=== PATIENT | female | born 1970 | race African-American/Black ===

== ENCOUNTER 2017-11-08 15:21 | Inpatient (IN) | payer OTHER ==
[2017-11-08 17:03] VITALS: BMI 43.5
--- NOTE | 2017-11-08 20:21 | HP ---
CIWA Score - CIWA Score Nausea/Vomitin Muscle Tremors: None Anxiety: 4-Mod. Anxious/Guarded Agitation: 4-Moderately Restless Paroxysmal Sweats: 3 Orientation: 3-Disoriented Date>2 days Tacttile Disturbances: 3-Moderate Itch/Numb/Burn Auditory Disturbances: 0-None Visual Disturbances: 0-None Headache: 0-None Present CIWA-Ar Total Score: 20 Admission ROS BHS - HPI Chief Complaint: C/O WITHDRAWAL SX'S. SEEKING DETOX FOR ALCOHOLISM Allergies/Adverse Reactions: Allergies Allergy/AdvReac Type Severity Reaction Status Date / Time Sulfa (Sulfonamide Allergy Severe Rash Verified 11/08/17 18:48 Antibiotics) History of Present Illness: 47 Y.O. FEMALE WITH HX/O ALCOHOLISM HERE FOR DETOX/ CLIENT IS KNOWN TO THIS PROGRAM. REFERRED BY HER HOUSING AGENCY. 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 DENIES LEGALS. Exam Limitations: No Limitations - Ebola screening Have you traveled outside of the country in the last 21 days: No Have you had contact with anyone from an Ebola affected area: No Have you been sick,other than usual withdrawal symptoms: No Do you have a fever: No - Review of Systems Constitutional: Chills, Loss of Appetite, Malaise, Night Sweats EENT: reports: Dental Problems (MISSING TEETH) Respiratory: reports: No Symptoms reported Cardiac: reports: No Symptoms Reported GI: reports: Poor Appetite, Poor Fluid Intake, Abdominal cramping : reports: No Symptoms Reported Musculoskeletal: reports: Joint Pain Integumentary: reports: No Symptoms Reported Neuro: reports: No Symptoms reported Endocrine: reports: No Symptoms Reported Hematology: reports: No Symptoms Reported Psychiatric: reports: Depressed Other Systems: Reviewed and Negative Patient History - Patient Medical History Hx Anemia: Yes Hx Asthma: Yes Hx Chronic Obstructive Pulmonary Disease (COPD): No Hx Cancer: No Hx Cardiac Disorders: No Hx Congestive Heart Failure: No Hx Hypertension: Yes Hx Hypercholesterolemia: No Hx Pacemaker: No HX Cerebrovascular Accident: No Hx Seizures: No Hx Dementia: No Hx Diabetes: No Hx Gastrointestinal Disorders: No Hx Liver Disease: No Hx Genitourinary Disorders: No Hx Sexually Transmitted Disorders: Yes (HIV) Hx Renal Disease (ESRD): No Hx Thyroid Disease: No Hx Human Immunodeficiency Virus (HIV): Yes (DX 1989) Hx Hepatitis C: No Hx Depression: Yes Hx Suicide Attempt: No Hx Bipolar Disorder: Yes Hx Schizophrenia: No Other Medical History: DENIES - Patient Surgical History Past Surgical History: Yes Hx Neurologic Surgery: No Hx Cataract Extraction: No Hx Cardiac Surgery: No Hx Lung Surgery: No Hx Breast Surgery: No Hx Breast Biopsy: No Hx Abdominal Surgery: No Hx Appendectomy: No Hx Cholecystectomy: No Hx Genitourinary Surgery: No Hx Section: No Hx Orthopedic Surgery: Yes (BILATERAL HIP REPLACEMENT) Other Surgical History: left hip replacement in 2002 Anesthesia Reaction: No - PPD History Previous Implant?: Yes Documented Results: Positive w/o proof Implanted On Prior [facility] Admission?: No Results: HAS COPY OF CXR PPD to be Administered?: No - Reproductive History Patient is a Female of Child Bearing Age (11 -55 yrs old): Yes Last Menstrual Period: 10/04/17 LMP comment: REG Patient : No (NEG [facility] [place]) - Smoking Cessation Smoking history: Current every day smoker Have you smoked in the past 12 months: Yes Aproximately how many cigarettes per day: 2 Cigars Per Day: 0 Hx Chewing Tobacco Use: No Initiated information on smoking cessation: Yes 'Breaking Loose' booklet given: 11/08/17 - Substance & Tx. History Hx Alcohol Use: Yes Hx Substance Use: Yes Substance Use Type: Alcohol, Cocaine, Marijuana Hx Substance Use Treatment: Yes ([facility]) - Substances Abused Alcohol Route: Oral Frequency: Daily Amount used: LIQUOR- 2 PINTS, BEER- 1 SIX PACK Age of first use: 17 Date of Last Use: 11/08/17 THC Route: Smoking Frequency: Daily Amount used: CAREY BAG Age of first use: 47 Date of Last Use: 11/08/17 COCAINE Route: Smoking Frequency: 3-6 times per week Amount used: 150 DOLLARS Age of first use: 34 Date of Last Use: 11/06/17 Family Disease History - Family Disease History Family Disease History: Diabetes: Grandparent, Heart Disease: Father (/ ALCOHOLISM/COCAINE), Mother, CA: Grandparent Admission Physical Exam S - Vital Signs Vital Signs: Vital Signs - 24 hr 11/08/17 17:01 Temperature 97.8 F Pulse Rate 94 H Respiratory 20 Rate Blood Pressure 168/98 - Physical General Appearance: Yes: Appropriately Dressed, Mild Distress, Sweating, Anxious , Other (DROWSI) HEENTM: Yes: EOMI, Normocephalic, Normal Voice, MYRNA, Pharynx Normal, Other ( MISSING TEETH) Respiratory: Yes: Chest Non-Tender, Lungs Clear, Normal Breath Sounds, No Respiratory Distress, No Accessory Muscle Use Neck: Yes: No masses,lesions,Nodules, Supple Breast: Yes: Breast Exam Deferred Cardiology: Yes: Regular Rhythm, S1, S2, Tachycardia Abdominal: Yes: Normal Bowel Sounds, Soft, Protuberent Genitourinary: Yes: Within Normal Limits (NO C/O) Back: Yes: Normal Inspection Musculoskeletal: Yes: full range of Motion, Gait Steady Extremities: Yes: Normal Capillary Refill, Normal Range of Motion, Non-Tender Neurological: Yes: Alert, Motor Strength 5/5 Integumentary: Yes: Normal Color, Warm, Moist Lymphatic: Yes: Within Normal Limits - Diagnostic (1) Alcohol dependence with uncomplicated withdrawal Current Visit: Yes Status: Chronic (2) Nicotine dependence Current Visit: Yes Status: Chronic Qualifiers: Nicotine product type: cigarettes Substance use status: uncomplicated Qualified Code(s): F17.210 - Nicotine dependence, cigarettes, uncomplicated (3) Asthma Current Visit: Yes Status: Chronic (4) Cocaine dependence Current Visit: Yes Status: Chronic (5) Essential hypertension Current Visit: Yes Status: Chronic (6) Human immunodeficiency virus infection Current Visit: Yes Status: Chronic (7) Anemia Current Visit: Yes Status: Chronic Qualifiers: Anemia type: unspecified type Qualified Code(s): D64.9 - Anemia, unspecified (8) Positive PPD Current Visit: Yes Status: Acute Cleared for Admission [facility] - Detox or Rehab [facility] Level of Care: Medically Managed Detox Regimen/Protocol: Librium Claeared for Rehab Admission: No [facility] Breath Alcohol Content Breath Alcohol Content: 0 Urine Pregancy Test - Result Urine Test Results: Negative- NO Line Present Urine Drug Screen - Results Drug Screen Negative: No Urine Drug Screen Results: THC-Marijuana, CHEVY-Cocaine
[2017-11-08] MEDS ORDERED: P-EPHED 60MG/TRIPROLIDI 2.5MG TABLET PO PRN (20:31)
[2017-11-08] MEDS ORDERED: MENTHOL/PHENOL 1 EACH UD MM PRN (20:31)
[2017-11-08] MEDS ORDERED: NICOTINE POLACRILEX 2 MG GUM BC PRN (20:31)
[2017-11-08] MEDS ORDERED: MAGNESIUM HYDROX 2400MG/30ML ORAL SUSPENSION 30 ML CUP PO PRN (20:31)
[2017-11-08] MEDS ORDERED: MAGNESIUM CITRATE 300 ML BOTTLE PO PRN (20:31)
[2017-11-08] MEDS ORDERED: IBUPROFEN 400 MG TABLET (FP) PO PRN (20:31)
[2017-11-08] MEDS ORDERED: hydrOXYzine PAMOATE 50 MG CAPSULE (FP) PO PRN (20:31)
[2017-11-08] MEDS ORDERED: LOPERAMIDE HCL 2 MG CAPSULE PO PRN (20:31)
[2017-11-08] MEDS ORDERED: guaiFENesin/D-METHORPHAN HB 10 ML UNIT-DOSE CUPS PO PRN (20:31)
[2017-11-08] MEDS ORDERED: MAG HYDROX/AL HYDROX/SIMETH 30 ML UNIT-DOSE CUP PO PRN (20:31)
[2017-11-08] MEDS ORDERED: ACETAMINOPHEN 325 MG TABLET (FP) PO PRN (20:31)
[2017-11-08] MEDS ORDERED: chlordiazePOXIDE HCL 25 MG CAPSULE PO PRN (20:31)
[2017-11-08] MEDS ORDERED: ALBUTEROL SO4 18 GM HFA INHALER IH PRN (20:34)
[2017-11-08] MEDS ORDERED: DOCUSATE SODIUM 100 MG CAPSULE (FP) PO PRN (20:38)
[2017-11-08] MEDS: RALTEGRAVIR POTASSIUM 400 MG TAB PO SCH (21:32)
[2017-11-08] MEDS: LISINOPRIL 10 MG TABLET (FP) PO SCH (21:32)
[2017-11-08] MEDS: THIAMINE HCL 100 MG TABLET (FP) PO SCH (21:33)
[2017-11-08] MEDS ORDERED: DARUNAVIR ETHANOLATE PO SCH (22:00)
[2017-11-08] MEDS ORDERED: MELATONIN 5 MG TABLETS PO PRN (22:00)
[2017-11-08] MEDS: chlordiazePOXIDE HCL 25 MG CAPSULE PO SCH (22:00)
[2017-11-08 22:55] LABS: URINE APPEARANCE SLCLOUDY; URINE BILIRUBIN NEGATIVE (<2.0 mg/dL); URINE BLOOD NEGATIVE (NEGATIVE); URINE COLOR LTYELLOW; URINE GLUCOSE (UA) NEGATIVE (NEGATIVE); URINE KETONE NEGATIVE (NEGATIVE); URINE LEUK ESTERASE NEGATIVE (NEGATIVE); URINE NITRITE NEGATIVE (NEGATIVE); URINE PROTEIN NEGATIVE (NEGATIVE); URINE UROBILINOGEN NEGATIVE mg/dL (0.2-1.0)
[2017-11-09] MEDS: ETRAVIRINE 100 MG TABLET PO SCH ×2 (00:12→11:10)
[2017-11-09] MEDS: RITONAVIR 100 MG TABLET PO SCH ×5 (00:14→22:28)
[2017-11-09] MEDS: RALTEGRAVIR POTASSIUM 400 MG TAB PO SCH ×2 (00:22→10:35)
[2017-11-09] MEDS: chlordiazePOXIDE HCL 25 MG CAPSULE PO SCH ×4 (05:45→22:28)
--- NOTE | 2017-11-09 07:45 | CONSULT ---
[facility] Psychiatric Consult - Data Date of interview: 11/09/17 Admission source: [facility] Identifying data: This is 47 years old AA obese female, single mother of two, living alone, on PA, with no psychiatric hospitalization history, seeking for detoxification after abusing: Alcohol, Cocaine and Nicotine. Substance Abuse History: Smoking Cessation. Smoking history: Current every day smoker. Have you smoked in the past 12 months: Yes. Aproximately how many cigarettes per day: 2. Cigars Per Day: 0. Hx Chewing Tobacco Use: No. Initiated information on smoking cessation: Yes. 'Breaking Loose' booklet given : 11/08/17. - Substance & Tx. History. Hx Alcohol Use: Yes. Hx Substance Use : Yes. Substance Use Type: Alcohol, Cocaine, Marijuana. Hx Substance Use Treatment: Yes ([facility]). - Substances Abused. Alcohol. Route: Oral. Frequency: Daily. Amount used: LIQUOR- 2 PINTS, BEER- 1 SIX PACK. Age of first use: 17. Date of Last Use: 11/08/17. THC. Route: Smoking. Frequency : Daily. Amount used: CAREY BAG. Age of first use: 47. Date of Last Use: 06/17. COCAINE. Route: Smoking. Frequency: 3-6 times per week. Amount used: 150 DOLLARS. Age of first use: 34. Date of Last Use: 11/06/17 Medical History: Obesity, Asthma, HTN, HIV+, Anemia, PPD positive history. Psychiatric History: Patient denies past psychiatric history Physical/Sexual Abuse/Trauma History: Denies Additional Comment: Obnservation. Detox Unit Care Protocol Mental Status Exam - Mental Status Exam Alert and Oriented to: Person Cognitive Function: Fair Patient Appearance: Unkempt Mood: Sad Affect: Mood Congruent Patient Behavior: Sedated Speech Pattern: Delayed Voice Loudness: Mildly Soft/Quiet Thought Process: Goal Oriented Thought Disorder: Being Controlled Hallucinations: Denies Suicidal Ideation: Denies Homicidal Ideation: Denies Sleep: Difficulty falling asleep Appetite: Weight gain Muscle strength/Tone: Normal Gait/Station: Shuffling Additional Comments: Obnservation. Detox Unit Care Protocol Psychiatric Findings - Problem List ([place] 1, 2,3) (1) Drug-induced mood disorder Current Visit: Yes Status: Suspected (2) Alcohol dependence with uncomplicated withdrawal Current Visit: Yes Status: Chronic (3) Cocaine dependence Current Visit: Yes Status: Chronic (4) Nicotine dependence Current Visit: Yes Status: Chronic Qualifiers: Nicotine product type: cigarettes Substance use status: uncomplicated Qualified Code(s): F17.210 - Nicotine dependence, cigarettes, uncomplicated (5) Alcohol dependence Current Visit: No Status: Active - Initial Treatment Plan Initial Treatment Plan: Obnservation. Detox Unit Care Protocol
[2017-11-09] MEDS ORDERED: ETRAVIRINE 200 MG TABLET PO SCH (09:15)
[2017-11-09] MEDS ORDERED: PREVASTATIN PO SCH (10:15)
[2017-11-09 10:35] LABS: HEMOGLOBIN 11.5 GM/dL (10.7-15.3); PLATELET COUNT 212 K/MM3 (134-434); WHITE BLOOD COUNT 9.7 K/mm3 (4.0-10.0)
[2017-11-09] MEDS: LISINOPRIL 10 MG TABLET (FP) PO SCH (10:35)
[2017-11-09] MEDS: PRENATAL VITAMINS W/ FOLIC ACID TABLET (FP) PO SCH (10:35)
[2017-11-09] MEDS: AMLODIPINE BESYLATE 10 MG PO SCH (10:36)
[2017-11-09] MEDS: DARUNAVIR ETHANOLATE 600 MG PO SCH ×3 (10:36→22:29)
[2017-11-09] MEDS: NICOTINE 14 MG/24 HOURS TOPICAL PATCH TD SCH (10:36)
[2017-11-09 10:40] LABS: MCH 30.5 pg (25.7-33.7); MCHC 32.9 g/dl (32.0-36.0); MEAN CELL VOLUME 92.8 fl (80-96); MEAN PLT VOLUME 9.7 fl (7.5-11.1); RBC 3.78 M/mm3 (3.60-5.2); RDW 15.1 % (11.6-15.6)
[2017-11-09 10:53] LABS: ALBUMIN 3.3 g/dl (3.4-5.0); ANION GAP 6 (8-16); BLOOD UREA NITROGEN 24 mg/dL (7-18); CHLORIDE 109 mmol/L (98-107); CO2 26 mmol/L (21-32); GLUCOSE,RANDOM 120 mg/dL (74-106); POTASSIUM 3.4 mmol/L (3.5-5.1); SODIUM 141 mmol/L (136-145)
[2017-11-09 11:01] LABS: ALK PHOS 159 U/L (45-117); CREATININE 1.4 mg/dL (0.55-1.02); SGOT/AST 15 U/L (15-37); SGPT/ALT 21 U/L (12-78); TOT PROT 7.4 g/dl (6.4-8.2)
[2017-11-09 11:08] LABS: BILIRUBIN,TOTAL < 0.1 mg/dL (0.2-1.0)
[2017-11-09] MEDS: FUROSEMIDE 40 MG TABLET (FP) PO SCH (11:26)
--- NOTE | 2017-11-09 12:30 | PN ---
S CIWA - CIWA Score Nausea/Vomitin Muscle Tremors: 3 Anxiety: 3 Agitation: 2 Paroxysmal Sweats: 1-Minimal Palms Moist Orientation: 0-Oriented Tacttile Disturbances: 1-Very Mild Itch/Numbness Auditory Disturbances: 1-Very Mild Visual Disturbances: 0-None Headache: 2-Mild CIWA-Ar Total Score: 16 BHS Progress Note (SOAP) Subjective: ALERT,IRRITABLE,ANXIOUS,INTERRUPTED SLEEP,TREMOR,EDEMA BOTH LEGS,NO SOB,HISTORY OF CHF IN THE PAST Objective: 11/09/17 12:25 Vital Signs Temperature 98.2 F 11/09/17 10:16 Pulse Rate 104 H 11/09/17 10:16 Respiratory Rate 20 11/09/17 10:16 Blood Pressure 136/92 11/09/17 10:16 O2 Sat by Pulse Oximetry (%) 11/09/17 12:25 EKG NSR,NORMAL ECG Laboratory Last Values WBC 9.7 K/mm3 (4.0-10.0) 11/09/17 07:00 RBC 3.78 M/mm3 (3.60-5.2) 11/09/17 07:00 Hgb 11.5 GM/dL (10.7-15.3) D 11/09/17 07:00 Hct 35.0 % (32.4-45.2) D 11/09/17 07:00 MCV 92.8 fl (80-96) 11/09/17 07:00 MCH 30.5 pg (25.7-33.7) D 11/09/17 07:00 MCHC 32.9 g/dl (32.0-36.0) 11/09/17 07:00 RDW 15.1 % (11.6-15.6) D 11/09/17 07:00 Plt Count 212 K/MM3 (134-434) 11/09/17 07:00 MPV 9.7 fl (7.5-11.1) 11/09/17 07:00 Sodium 141 mmol/L (136-145) 11/09/17 07:00 Potassium 3.4 mmol/L (3.5-5.1) L 11/09/17 07:00 Chloride 109 mmol/L (98-107) H 11/09/17 07:00 Carbon Dioxide 26 mmol/L (21-32) 11/09/17 07:00 Anion Gap 6 (8-16) L 11/09/17 07:00 BUN 24 mg/dL (7-18) H 11/09/17 07:00 Creatinine 1.4 mg/dL (0.55-1.02) H 11/09/17 07:00 Creat Clearance w eGFR 40.13 (>60) 11/09/17 07:00 Random Glucose 120 mg/dL (74-106) H 11/09/17 07:00 Calcium 9.0 mg/dL (8.5-10.1) 11/09/17 07:00 Total Bilirubin < 0.1 mg/dL (0.2-1.0) L D 11/09/17 07:00 AST 15 U/L (15-37) 11/09/17 07:00 ALT 21 U/L (12-78) 11/09/17 07:00 Alkaline Phosphatase 159 U/L (45-117) H 11/09/17 07:00 Total Protein 7.4 g/dl (6.4-8.2) 11/09/17 07:00 Albumin 3.3 g/dl (3.4-5.0) L 11/09/17 07:00 Urine Color Ltyellow 11/08/17 20:20 Urine Appearance Slcloudy 11/08/17 20:20 Urine pH 5.0 (5.0-8.0) 11/08/17 20:20 Ur Specific [place] 1.020 (1.001-1.035) 11/08/17 20:20 Urine Protein Negative (NEGATIVE) 11/08/17 20:20 Urine Glucose (UA) Negative (NEGATIVE) 11/08/17 20:20 Urine Ketones Negative (NEGATIVE) 11/08/17 20:20 Urine Blood Negative (NEGATIVE) 11/08/17 20:20 Urine Nitrite Negative (NEGATIVE) 11/08/17 20:20 Urine Bilirubin Negative (<2.0 mg/dL) 11/08/17 20:20 Urine Urobilinogen Negative mg/dL (0.2-1.0) 11/08/17 20:20 Ur Leukocyte Esterase Negative (NEGATIVE) 11/08/17 20:20 Assessment: 11/09/17 12:30 WITHDRAWAL SYMPTOM Plan: CONTINUE DETOX,FASTING GLUCOSE IN AM,K IN AM,HBA1C IN AM
--- NOTE | 2017-11-09 13:32 | EKG ---
Test Reason : Blood Pressure : / mmHG Vent. Rate : 085 BPM Atrial Rate : 085 BPM P-R Int : 168 ms QRS Dur : 104 ms QT Int : 392 ms P-R-T Axes : 073 074 059 degrees QTc Int : 466 ms NORMAL SINUS RHYTHM NORMAL ECG NO PREVIOUS ECGS AVAILABLE Confirmed by KEYON ALEMAN MD ([id number]) on 11/09/2017 1:31:30 PM Referred By: Confirmed By:KEYON ALEMAN MD
[2017-11-09] MEDS: POTASSIUM CHLORIDE TABS 20 MEQ TABLET.ER (FP) PO SCH (14:13)
[2017-11-09] MEDS ORDERED: RITONAVIR 100 MG PO SCH (17:30)
--- NOTE | 2017-11-09 18:07 | PN ---
S Progress Note Note: Patient requested to take antiviral medications at 10AM and 10PM.
[2017-11-09] MEDS ORDERED: ETRAVIRINE 200 MG PO SCH (18:30)
[2017-11-09] MEDS: THIAMINE HCL 100 MG TABLET (FP) PO SCH (22:27)
[2017-11-09] MEDS: RALTEGRAVIR POTASSIUM 400 MG PO SCH (22:28)
[2017-11-09] MEDS: ETRAVIRINE 200 MG TABLET PO SCH (22:28)
[2017-11-09] MEDS: PREVASTATIN PO SCH (22:30)
[2017-11-10] MEDS: chlordiazePOXIDE HCL 25 MG CAPSULE PO SCH ×3 (05:31→19:35)
[2017-11-10] MEDS: diphenhydrAMINE HCL 25 MG CAPSULE (FP) PO PRN ×3 (09:42→21:35)
[2017-11-10 09:51] LABS: GLUCOSE,FASTING 109 mg/dL (70-105); GLUCOSE,RANDOM 109 mg/dL (74-106)
[2017-11-10] MEDS ORDERED: LAMIVUDINE 300 MG PO SCH (10:00)
[2017-11-10] MEDS ORDERED: ASPIRIN COATED PO SCH (10:00)
[2017-11-10 10:16] LABS: ALBUMIN 3.1 g/dl (3.4-5.0); ALK PHOS 137 U/L (45-117); ANION GAP 5 (8-16); BLOOD UREA NITROGEN 18 mg/dL (7-18); CALCIUM 8.2 mg/dL (8.5-10.1); CHLORIDE 109 mmol/L (98-107); CO2 27 mmol/L (21-32); POTASSIUM 3.6 mmol/L (3.5-5.1); SGOT/AST 15 U/L (15-37); SGPT/ALT 16 U/L (12-78); SODIUM 141 mmol/L (136-145)
[2017-11-10 10:18] LABS: BILIRUBIN,TOTAL < 0.1 mg/dL (0.2-1.0)
--- NOTE | 2017-11-10 11:10 | PN ---
S CIWA - CIWA Score Nausea/Vomitin Muscle Tremors: 3 Anxiety: 3 Agitation: 2 Paroxysmal Sweats: 1-Minimal Palms Moist Orientation: 0-Oriented Tacttile Disturbances: 1-Very Mild Itch/Numbness Auditory Disturbances: 1-Very Mild Visual Disturbances: 0-None Headache: 2-Mild CIWA-Ar Total Score: 16 BHS Progress Note (SOAP) Subjective: ALERT,IRRITABLE,ANXIOUS,INTERRUPTED SLEEP,TREMOR,SWELLING OF LOWER LIP Objective: 11/10/17 11:06 Vital Signs Temperature 98.1 F 11/10/17 09:58 Pulse Rate 90 11/10/17 09:58 Respiratory Rate 20 11/10/17 09:58 Blood Pressure 137/80 11/10/17 09:58 O2 Sat by Pulse Oximetry (%) 11/10/17 11:06 Laboratory Last Values WBC 9.7 K/mm3 (4.0-10.0) 11/09/17 07:00 RBC 3.78 M/mm3 (3.60-5.2) 11/09/17 07:00 Hgb 11.5 GM/dL (10.7-15.3) D 11/09/17 07:00 Hct 35.0 % (32.4-45.2) D 11/09/17 07:00 MCV 92.8 fl (80-96) 11/09/17 07:00 MCH 30.5 pg (25.7-33.7) D 11/09/17 07:00 MCHC 32.9 g/dl (32.0-36.0) 11/09/17 07:00 RDW 15.1 % (11.6-15.6) D 11/09/17 07:00 Plt Count 212 K/MM3 (134-434) 11/09/17 07:00 MPV 9.7 fl (7.5-11.1) 11/09/17 07:00 Sodium 141 mmol/L (136-145) 11/10/17 08:30 Potassium 3.6 mmol/L (3.5-5.1) 11/10/17 08:30 Chloride 109 mmol/L (98-107) H 11/10/17 08:30 Carbon Dioxide 27 mmol/L (21-32) 11/10/17 08:30 Anion Gap 5 (8-16) L 11/10/17 08:30 BUN 18 mg/dL (7-18) 11/10/17 08:30 Creatinine 1.0 mg/dL (0.55-1.02) 11/10/17 08:30 Creat Clearance w eGFR 59.18 (>60) 11/10/17 08:30 Random Glucose 109 mg/dL (74-106) H 11/10/17 08:30 Fasting Glucose 109 mg/dL (70-105) H 11/10/17 08:30 Calcium 8.2 mg/dL (8.5-10.1) L 11/10/17 08:30 Total Bilirubin < 0.1 mg/dL (0.2-1.0) L 11/10/17 08:30 AST 15 U/L (15-37) 11/10/17 08:30 ALT 16 U/L (12-78) 11/10/17 08:30 Alkaline Phosphatase 137 U/L (45-117) H 11/10/17 08:30 Total Protein 7.0 g/dl (6.4-8.2) 11/10/17 08:30 Albumin 3.1 g/dl (3.4-5.0) L 11/10/17 08:30 Urine Color Ltyellow 11/08/17 20:20 Urine Appearance Slcloudy 11/08/17 20:20 Urine pH 5.0 (5.0-8.0) 11/08/17 20:20 Ur Specific [place] 1.020 (1.001-1.035) 11/08/17 20:20 Urine Protein Negative (NEGATIVE) 11/08/17 20:20 Urine Glucose (UA) Negative (NEGATIVE) 11/08/17 20:20 Urine Ketones Negative (NEGATIVE) 11/08/17 20:20 Urine Blood Negative (NEGATIVE) 11/08/17 20:20 Urine Nitrite Negative (NEGATIVE) 11/08/17 20:20 Urine Bilirubin Negative (<2.0 mg/dL) 11/08/17 20:20 Urine Urobilinogen Negative mg/dL (0.2-1.0) 11/08/17 20:20 Ur Leukocyte Esterase Negative (NEGATIVE) 11/08/17 20:20 RPR Titer Nonreactive (NONREACTIVE) 11/09/17 07:00 Assessment: 04/13/18 11:07 WITHDRAWAL SYMPTOM Plan: CONTINUE DETOX,BENADRYL 25 MGS PO Q 6 HRS PRN,
[2017-11-10] MEDS ORDERED: DARUNAVIR ETHANOLATE 600 MG PO SCH ×2 (11:15→12:50)
[2017-11-10] MEDS: PRENATAL VITAMINS W/ FOLIC ACID TABLET (FP) PO SCH (11:32)
[2017-11-10] MEDS: POTASSIUM CHLORIDE TABS 20 MEQ TABLET.ER (FP) PO SCH (11:32)
[2017-11-10] MEDS: RALTEGRAVIR POTASSIUM 400 MG PO SCH ×2 (11:35→22:49)
[2017-11-10] MEDS: RITONAVIR 100 MG TABLET PO SCH ×3 (11:37→18:00)
[2017-11-10] MEDS: AMLODIPINE BESYLATE 10 MG PO SCH (11:37)
[2017-11-10] MEDS: NICOTINE 14 MG/24 HOURS TOPICAL PATCH TD SCH (11:38)
[2017-11-10] MEDS: ETRAVIRINE 200 MG TABLET PO SCH ×3 (11:38→18:00)
[2017-11-10] MEDS: LISINOPRIL 10 MG TABLET (FP) PO SCH (11:39)
[2017-11-10] MEDS: FUROSEMIDE 40 MG TABLET (FP) PO SCH (11:41)
[2017-11-10] MEDS: DARUNAVIR ETHANOLATE 600 MG PO SCH (12:47)
[2017-11-10] MEDS ORDERED: hydrOXYzine HCL 25 MG TABLET (FP) PO ONE (17:15)
[2017-11-10] MEDS ORDERED: DARUNAVIR ETHANOLATE 600 MG TAB PO SCH (17:30)
[2017-11-10 17:48] VITALS: TEMP 99
[2017-11-10] MEDS ORDERED: predniSONE 20 MG TABLET (UD) PO ONE (21:25)
--- NOTE | 2017-11-10 21:33 | PN ---
[facility] Progress Note Note: Patient with smelling of the right lip and cheek. Patient in no apparent distress. Vital Signs Temperature 99 F 11/10/17 17:47 Pulse Rate 90 11/10/17 17:47 Respiratory Rate 20 11/10/17 17:47 Blood Pressure 92/56 11/10/17 17:47 O2 Sat by Pulse Oximetry (%) Laboratory Last Values WBC 9.7 K/mm3 (4.0-10.0) 11/09/17 07:00 RBC 3.78 M/mm3 (3.60-5.2) 11/09/17 07:00 Hgb 11.5 GM/dL (10.7-15.3) D 11/09/17 07:00 Hct 35.0 % (32.4-45.2) D 11/09/17 07:00 MCV 92.8 fl (80-96) 11/09/17 07:00 MCH 30.5 pg (25.7-33.7) D 11/09/17 07:00 MCHC 32.9 g/dl (32.0-36.0) 11/09/17 07:00 RDW 15.1 % (11.6-15.6) D 11/09/17 07:00 Plt Count 212 K/MM3 (134-434) 11/09/17 07:00 MPV 9.7 fl (7.5-11.1) 11/09/17 07:00 Sodium 141 mmol/L (136-145) 11/10/17 08:30 Potassium 3.6 mmol/L (3.5-5.1) 11/10/17 08:30 Chloride 109 mmol/L (98-107) H 11/10/17 08:30 Carbon Dioxide 27 mmol/L (21-32) 11/10/17 08:30 Anion Gap 5 (8-16) L 11/10/17 08:30 BUN 18 mg/dL (7-18) 11/10/17 08:30 Creatinine 1.0 mg/dL (0.55-1.02) 11/10/17 08:30 Creat Clearance w eGFR 59.18 (>60) 11/10/17 08:30 Random Glucose 109 mg/dL (74-106) H 11/10/17 08:30 Fasting Glucose 109 mg/dL (70-105) H 11/10/17 08:30 Calcium 8.2 mg/dL (8.5-10.1) L 11/10/17 08:30 Total Bilirubin < 0.1 mg/dL (0.2-1.0) L 11/10/17 08:30 AST 15 U/L (15-37) 11/10/17 08:30 ALT 16 U/L (12-78) 11/10/17 08:30 Alkaline Phosphatase 137 U/L (45-117) H 11/10/17 08:30 Total Protein 7.0 g/dl (6.4-8.2) 11/10/17 08:30 Albumin 3.1 g/dl (3.4-5.0) L 11/10/17 08:30 Urine Color Ltyellow 11/08/17 20:20 Urine Appearance Slcloudy 11/08/17 20:20 Urine pH 5.0 (5.0-8.0) 11/08/17 20:20 Ur Specific [place] 1.020 (1.001-1.035) 11/08/17 20:20 Urine Protein Negative (NEGATIVE) 11/08/17 20:20 Urine Glucose (UA) Negative (NEGATIVE) 11/08/17 20:20 Urine Ketones Negative (NEGATIVE) 11/08/17 20:20 Urine Blood Negative (NEGATIVE) 11/08/17 20:20 Urine Nitrite Negative (NEGATIVE) 11/08/17 20:20 Urine Bilirubin Negative (<2.0 mg/dL) 11/08/17 20:20 Urine Urobilinogen Negative mg/dL (0.2-1.0) 11/08/17 20:20 Ur Leukocyte Esterase Negative (NEGATIVE) 11/08/17 20:20 RPR Titer Nonreactive (NONREACTIVE) 11/09/17 07:00 Patient AOx3 self directing Lung Clear, no adventitious breath sounds Normal Heart Rate and rythm + mild edema right lip and cheek Plan: Benadryl 25mg STAT and Prednisone 20mg stat Increase fluids Continue to monitor
--- NOTE | 2017-11-10 22:43 | PN ---
[facility] Progress Note Note: Vital Signs Temperature 99 F 11/10/17 17:47 Pulse Rate 90 11/10/17 17:47 Respiratory Rate 20 11/10/17 17:47 Blood Pressure 92/56 11/10/17 17:47 O2 Sat by Pulse Oximetry (%) Patient with worsening swelling of the face. Swelling began on the right lip and cheek and now has spread to the left lip and cheek. Denies SOB, chest pain or dyspnea. Patient in no respiratory distress . Normal HR and Rythm Lungs clear through out Patient send to [facility] for further evalaution. Patient endorse to Dr. Solis.
[2017-11-10] MEDS: THIAMINE HCL 100 MG TABLET (FP) PO SCH (22:46)
[2017-11-10] MEDS: PREVASTATIN PO SCH (22:46)
[2017-11-10] MEDS ORDERED: chlordiazePOXIDE 5 MG CAPSULE PO SCH (23:00)
[2017-11-10 23:16] VITALS: BP 129/73; PULSE 86
[2017-11-11] MEDS: diphenhydrAMINE HCL 25 MG CAPSULE (FP) PO PRN (09:40)
[2017-11-11] MEDS ORDERED: DARUNAVIR ETHANOLATE 600 MG TAB PO SCH (10:00)
[2017-11-11] MEDS ORDERED: RITONAVIR 100 MG TABLET PO SCH (10:00)
[2017-11-11] MEDS ORDERED: predniSONE 20 MG TABLET (UD) PO SCH (10:00)
[2017-11-11] MEDS ORDERED: chlordiazePOXIDE HCL 10 MG CAPSULE PO SCH (23:00)
== END 2017-11-11 07:00 | disposition short-term general hospital (02) | DRG 774 ==
LOC: YASAS 15:21 → Y6N 19:02
PROVIDERS: ADMIT Internal Medicine; ATTEND Internal Medicine
PROC: HZ2ZZZZ Detoxification Services for Substance Abuse Treatment (ICD-10-PCS; principal; 2017-11-08)
DX: F10.230 Alcohol dependence with withdrawal, uncomplicated (principal); F14.20 Cocaine dependence, uncomplicated; F17.210 Nicotine dependence, cigarettes, uncomplicated; F19.24 Other psychoactive substance dependence with psychoactive substance-induced mood disorder; E86.0 Dehydration; E87.6 Hypokalemia; I10 Essential (primary) hypertension; J45.909 Unspecified asthma, uncomplicated; D64.9 Anemia, unspecified; R76.11 Nonspecific reaction to tuberculin skin test without active tuberculosis; Z96.643 Presence of artificial hip joint, bilateral
CPT/HCPCS: 36415; 71045-TC-FY; 80053; 81003; 82947; 85027; 86593; 93005; 93010

== ENCOUNTER 2017-11-10 23:36 | Observation (INO) | payer OTHER ==
[2017-11-11] MEDS ORDERED: methylPREDNISolone NA SUCC 125 MG/2 ML VIAL IVPB ONE (00:22)
[2017-11-11] MEDS ORDERED: FAMOTIDINE IV 20 MG/12 ML VIAL IVPUSH ONE (00:30)
[2017-11-11] MEDS ORDERED: SODIUM CHLORIDE 1,000 ML IV STA (00:30)
--- NOTE | 2017-11-11 00:54 | PDOC ---
History of Present Illness - General History Source: Patient, Old Records Exam Limitations: No Limitations - History of Present Illness Initial Comments: 11/11/17 01:01 The patient is a 47 year old female with a past medical history of polysubstance abuse, alcohol abuse, asthma, hypertension, HIV, and CHF who presents from [facility] brought in by ambulance for angioedema. The patient had taken a medication that she thought was Lasix. She went to sleep and woke up with her current symptoms. She denies any voice changes. <Kam Mcfarland - Last Filed: 11/11/17 01:01> - General History Source: Patient Exam Limitations: No Limitations <Jefe Petit - Last Filed: 11/11/17 02:39> - General Chief Complaint: Allergic Reaction Stated Complaint: ALLERGIC REACTION Time Seen by Provider: 11/11/17 00:23 Past History <Kam Mcfarland - Last Filed: 11/11/17 01:01> - Past Medical History Anemia: Yes Asthma: Yes Cancer: No Cardiac Disorders: No CVA: No COPD: No CHF: No Dementia: No Diabetes: No GI Disorders: No Disorders: No HTN: Yes Hypercholesterolemia: No Kidney Stones: No Liver Disease: No Seizures: No Thyroid Disease: No - Surgical History Abdominal Surgery: No Appendectomy: No Cardiac Surgery: No Cholecystectomy: No Lung Surgery: No Neurologic Surgery: No Orthopedic Surgery: Yes (BILATERAL HIP REPLACEMENT) - Reproductive History PID: No - Suicide/Smoking/Psychosocial Hx Smoking History: Never smoked Have you smoked in the past 12 months: No Number of Cigarettes Smoked Daily: 2 Cigars Per Day: 0 Information on smoking cessation initiated: No 'Breaking Loose' booklet given: 11/08/17 Hx Alcohol Use: Yes Drug/Substance Use Hx: Yes (unknown) Substance Use Type: Alcohol, Cocaine, Marijuana Hx Substance Use Treatment: Yes ([facility]) <Jefe Petit - Last Filed: 11/11/17 02:39> - Past Medical History Allergies/Adverse Reactions: Allergies Allergy/AdvReac Type Severity Reaction Status Date / Time Sulfa (Sulfonamide Allergy Severe Rash Verified 11/10/17 23:50 Antibiotics) melatonin Allergy Intermediate Swelling Verified 11/10/17 23:50 Home Medications: Ambulatory Orders Albuterol Sulfate Inhaler - [Ventolin Hfa *Inhaler*] 2 inh IH Q4H PRN 03/20/13 Darunavir Ethanolate [Prezista] 400 mg PO BID 03/20/13 Etravirine [Intelence] 200 mg PO BID 03/20/13 Lamivudine [Epivir] 300 mg PO DAILY 03/20/13 Lisinopril [Prinivil] 10 mg PO DAILY 03/20/13 Raltegravir [Isentress -] 400 mg PO BID 03/20/13 Ritonavir [Norvir] 100 mg PO BID 03/20/13 Tenofovir Disoproxil Fumarate [Viread] 300 mg PO DAILY 03/20/13 Review of Systems - Review of Systems Able to Perform ROS?: Yes Comments:: 11/11/17 01:01 GENERAL/CONSTITUTIONAL: No fever or chills. No weakness. HEAD, EYES, EARS, NOSE AND THROAT: (+) No change in vision. No ear pain or discharge. No sore throat. Angioedema. CARDIOVASCULAR: No chest pain or shortness of breath. RESPIRATORY: No cough, wheezing, or hemoptysis. GASTROINTESTINAL: No nausea, vomiting, diarrhea or constipation. GENITOURINARY: No dysuria, frequency, or change in urination. MUSCULOSKELETAL: No joint or muscle swelling or pain. No neck or back pain. SKIN: No rash NEUROLOGIC: No headache, vertigo, loss of consciousness, or change in strength/ sensation. ENDOCRINE: No increased thirst. No abnormal weight change. HEMATOLOGIC/LYMPHATIC: No anemia, easy bleeding, or history of blood clots. ALLERGIC/IMMUNOLOGIC: No hives or skin allergy. <Kam Mcfarland - Last Filed: 11/11/17 01:01> *Physical Exam - Vital Signs Last Vital Signs Temp Pulse Resp BP Pulse Ox 98.3 F 79 16 130/70 98 11/10/17 23:50 11/10/17 23:50 11/10/17 23:50 11/10/17 23:50 11/10/17 23:50 - Physical Exam Comments: 11/11/17 01:01 GENERAL: Awake, alert, and fully oriented, in no acute distress HEAD: No signs of trauma EYES: PERRLA, EOMI, sclera anicteric, conjunctiva clear ENT: (+) Auricles normal inspection, hearing grossly normal, nares patent, posterior oropharynx clear without exudates. Moist mucosa. Angioedema of upper and lower lips, voice is baseline NECK: Normal ROM, supple, no lymphadenopathy, JVD, or masses LUNGS: Breath sounds equal, clear to auscultation bilaterally. No wheezes, and no crackles HEART: Regular rate and rhythm, normal S1 and S2, no murmurs, rubs or gallops ABDOMEN: Soft, nontender, normoactive bowel sounds. No guarding, no rebound. No masses EXTREMITIES: Normal range of motion, no edema. No clubbing or cyanosis. No cords, erythema, or tenderness NEUROLOGICAL: Cranial nerves II through XII grossly intact. Normal speech, normal gait SKIN: Warm, Dry, normal turgor, no rashes or lesions noted. <Kam Mcfarland - Last Filed: 11/11/17 01:01> - Vital Signs Last Vital Signs Temp Pulse Resp BP Pulse Ox 98.3 F 79 16 130/70 98 11/10/17 23:50 11/10/17 23:50 11/10/17 23:50 11/10/17 23:50 11/10/17 23:50 <Jefe Petit - Last Filed: 11/11/17 02:39> ED Treatment Course - LABORATORY CBC & Chemistry Diagram: 11/11/17 01:15 11/11/17 01:15 <Jefe Petit - Last Filed: 11/11/17 02:39> Medical Decision Making - Medical Decision Making 11/11/17 00:48 A portion of this note was documented by scribe services under my direction. I have reviewed the details of the note, within reason, and agree with the documentation with the following case summary and management plan written by me. Patient treated in the ED. Nursing notes are reviewed and incorporated into the medical decision-making. Vital signs reviewed. Peripheral IV access obtained by the nurse, laboratory studies are drawn and sent, reviewed and interpreted by myself. Vital Signs Temp Pulse Resp BP Pulse Ox 98.3 F 79 16 130/70 98 11/10/17 23:50 11/10/17 23:50 11/10/17 23:50 11/10/17 23:50 11/10/17 23:50 47-year-old female with past medical history of alcohol abuse, HIV, CHF presents with angioedema. The patient had taken a medication which she thought was Lasix. She had went to sleep and woken up with angioedema of the lips. Denies difficulty breathing or drooling. States that her voice is the same. Was sent to the ER for evaluation. The patient is noted to be on lisinopril. This is certainly angioedema but without airway compromise. It could be secondary to the JOVANNA inhibitor's. We will discontinue the JOVANNA inhibitor's here. The patient is not tremulous or withdrawing from alcohol at this time. However, we will observe the patient. We' ll give ALLERGIC reaction medication such as Solu-Medrol, Benadryl and Pepcid and admit the patient for an observation. 11/11/17 02:38 CBC, BMP 11/11/17 01:15 11/11/17 01:15 CMP Sodium 141 mmol/L (136-145) 11/11/17 01:15 Potassium 4.0 mmol/L (3.5-5.1) 11/11/17 01:15 Chloride 108 mmol/L (98-107) H 11/11/17 01:15 Carbon Dioxide 29 mmol/L (21-32) 11/11/17 01:15 Anion Gap 4 (8-16) L 11/11/17 01:15 BUN 17 mg/dL (7-18) 11/11/17 01:15 Creatinine 1.1 mg/dL (0.55-1.02) H 11/11/17 01:15 Creat Clearance w eGFR 53.01 (>60) 11/11/17 01:15 Random Glucose 122 mg/dL (74-106) H 11/11/17 01:15 Calcium 8.9 mg/dL (8.5-10.1) 11/11/17 01:15 Total Bilirubin < 0.1 mg/dL (0.2-1.0) L 11/11/17 01:15 AST 16 U/L (15-37) 11/11/17 01:15 ALT 15 U/L (12-78) 11/11/17 01:15 Alkaline Phosphatase 141 U/L (45-117) H 11/11/17 01:15 Total Protein 7.4 g/dl (6.4-8.2) 11/11/17 01:15 Albumin 3.3 g/dl (3.4-5.0) L 11/11/17 01:15 Pt has been observed for 3 hours without any airway difficulty or worsening of symptoms. Case discussed with ICU PHARMACY TECH Yudelka. We both agreed that patient can be likely observed on telemetry. Case discussed with [facility] hospitalist who accepts patient for admission. <Jefe Petit - Last Filed: 11/11/17 02:39> *DC/Admit/Observation/Transfer - Attestations Scribe Attestion: 11/11/17 01:01 Documentation prepared by Kam Mcfarland, acting as medical cash poster for Jefe Petit MD. <Kam Mcfarlnad - Last Filed: 11/11/17 01:01> - Discharge Dispostion Admit: Yes <Jefe Petit - Last Filed: 11/11/17 02:39> Diagnosis at time of Disposition: Angioedema Qualifiers: Encounter type: initial encounter Qualified Code(s): T78.3XXA - Angioneurotic edema, initial encounter - Discharge Dispostion Condition at time of disposition: Stable
[2017-11-11 01:21] LABS: BASO % 0.5 % (0-2.0); EOS % 0.1 % (0-4.5); HEMATOCRIT 32.2 % (32.4-45.2); HEMOGLOBIN 10.8 GM/dL (10.7-15.3); LYMPH % 16.6 % (8-40); MCH 30.8 pg (25.7-33.7); MCHC 33.5 g/dl (32.0-36.0); MEAN PLT VOLUME 9.2 fl (7.5-11.1); MONO % 3.8 % (3.8-10.2); PLATELET COUNT 191 K/MM3 (134-434); RDW 15.2 % (11.6-15.6); WHITE BLOOD COUNT 8.8 K/mm3 (4.0-10.0)
[2017-11-11] MEDS ORDERED: methylPREDNISolone NA SUCC 125 MG/2 ML VIAL ONE (01:49)
[2017-11-11] MEDS ORDERED: FAMOTIDINE 20 MG/50 ML IVPB 20 MG/50 ML MG IVPB ONE (01:49)
[2017-11-11 02:04] LABS: ALBUMIN 3.3 g/dl (3.4-5.0); ALK PHOS 141 U/L (45-117); ANION GAP 4 (8-16); BLOOD UREA NITROGEN 17 mg/dL (7-18); CALCIUM 8.9 mg/dL (8.5-10.1); CHLORIDE 108 mmol/L (98-107); CO2 29 mmol/L (21-32); CREATININE 1.1 mg/dL (0.55-1.02); GLUCOSE,RANDOM 122 mg/dL (74-106); SGOT/AST 16 U/L (15-37); SGPT/ALT 15 U/L (12-78); SODIUM 141 mmol/L (136-145); TOT PROT 7.4 g/dl (6.4-8.2)
[2017-11-11 02:10] LABS: BILIRUBIN,TOTAL < 0.1 mg/dL (0.2-1.0)
[2017-11-11] MEDS ORDERED: diphenhydrAMINE HCL 25 MG CAPSULE (FP) PO PRN (03:18)
--- NOTE | 2017-11-11 03:18 | HP ---
CHIEF COMPLAINT: swelling HISTORY OF PRESENT ILLNESS: 47 year old F with pmh of polysubstance abuse, htn, chf, hiv presented from [facility] for angioedema. Patient went to [facility] for alcohol detox this afternoon. She received some home medications there and began having lip and facial swelling around 5 pm. Patient came to the ER and was treated. She denies any fever, chills, chest pain, shortness of breath. Recent Travel: denies PAST MEDICAL HISTORY: as per hpi PAST SURGICAL HISTORY: denies Social History: Smoking: +MJ, +cigarettes Alcohol: 2 pints x 4 yrs Drugs: +cocaine Family History: Allergies Sulfa (Sulfonamide Antibiotics) Allergy (Severe, Verified 11/10/17 23:50) Rash melatonin Allergy (Intermediate, Verified 11/10/17 23:50) Swelling HOME MEDICATIONS: Home Medications Medication Instructions Recorded Albuterol Sulfate Inhaler - 2 inh IH Q4H PRN 03/20/13 [Ventolin Hfa *Inhaler*] Darunavir Ethanolate [Prezista] 400 mg PO BID 03/20/13 Etravirine [Intelence] 200 mg PO BID 03/20/13 Lamivudine [Epivir] 300 mg PO DAILY 03/20/13 Lisinopril [Prinivil] 10 mg PO DAILY 03/20/13 Raltegravir [Isentress -] 400 mg PO BID 03/20/13 Ritonavir [Norvir] 100 mg PO BID 03/20/13 Tenofovir Disoproxil Fumarate 300 mg PO DAILY 03/20/13 [Viread] REVIEW OF SYSTEMS CONSTITUTIONAL: Absent: fever, chills, diaphoresis, generalized weakness, malaise, loss of appetite, weight change HEENT: Absent: +facial swelling, rhinorrhea, nasal congestion, throat pain, throat swelling, difficulty swallowing, mouth swelling, ear pain, eye pain, visual changes CARDIOVASCULAR: Absent: chest pain, syncope, palpitations, irregular heart rate, lightheadedness , peripheral edema RESPIRATORY: Absent: cough, shortness of breath, dyspnea with exertion, orthopnea, wheezing, stridor, hemoptysis GASTROINTESTINAL: Absent: abdominal pain, abdominal distension, nausea, vomiting, diarrhea, constipation, melena, hematochezia GENITOURINARY: Absent: dysuria, frequency, urgency, hesitancy, hematuria, flank pain, genital pain MUSCULOSKELETAL: Absent: myalgia, arthralgia, joint swelling, back pain, neck pain SKIN: Absent: rash, itching, pallor HEMATOLOGIC/IMMUNOLOGIC: Absent: easy bleeding, easy bruising, lymphadenopathy, frequent infections ENDOCRINE: Absent: unexplained weight gain, unexplained weight loss, heat intolerance, cold intolerance NEUROLOGIC: Absent: headache, focal weakness or paresthesias, dizziness, unsteady gait, seizure, mental status changes, bladder or bowel incontinence PSYCHIATRIC: Absent: anxiety, depression, suicidal or homicidal ideation, hallucinations. PHYSICAL EXAMINATION Vital Signs - 24 hr 11/10/17 23:50 Temperature 98.3 F Pulse Rate 79 Respiratory 16 Rate Blood Pressure 130/70 O2 Sat by Pulse 98 Oximetry (%) GENERAL: Awake, alert, and fully oriented, in no acute distress. HEAD: Normal with no signs of trauma. EYES: Pupils equal, round and reactive to light, extraocular movements intact, sclera anicteric, conjunctiva clear. No lid lag. EARS, NOSE, THROAT: Nares patent, oropharynx clear without exudates. Moist mucous membranes. +Lip and right facial swelling NECK: Normal range of motion, supple without lymphadenopathy, JVD, or masses. LUNGS: Distant breath sounds, clear to auscultation bilaterally. No wheezes, and no crackles. No accessory muscle use. HEART: Regular rate and rhythm, normal S1 and S2 without murmur, rub or gallop. ABDOMEN: Soft, nontender, not distended, normoactive bowel sounds, no guarding, no rebound, no masses. MUSCULOSKELETAL: Normal range of motion UPPER EXTREMITIES: 2+ pulses, warm, well-perfused. No cyanosis. No clubbing. No peripheral edema. LOWER EXTREMITIES: 2+ pulses, warm, well-perfused. No calf tenderness. +pitting edema NEUROLOGICAL: Cranial nerves II-XII intact. Normal speech. PSYCHIATRIC: Cooperative. Good eye contact. Appropriate mood and affect. SKIN: Warm, dry, normal turgor, no rashes or lesions noted, normal capillary refill. Laboratory Results - last 24 hr 11/11/17 11/11/17 01:15 01:15 WBC 8.8 RBC 3.50 L Hgb 10.8 Hct 32.2 L MCV 92.0 MCH 30.8 MCHC 33.5 RDW 15.2 Plt Count 191 MPV 9.2 Neutrophils % 79.0 Lymphocytes % 16.6 Monocytes % 3.8 Eosinophils % 0.1 Basophils % 0.5 Sodium 141 Potassium 4.0 Chloride 108 H Carbon Dioxide 29 Anion Gap 4 L BUN 17 Creatinine 1.1 H Creat Clearance w eGFR 53.01 Random Glucose 122 H Calcium 8.9 Total Bilirubin < 0.1 L AST 16 ALT 15 Alkaline Phosphatase 141 H Total Protein 7.4 Albumin 3.3 L ASSESSMENT/PLAN: #Angioedema, likely 2/2 to lisinopril -D/C lisinopril, avoid donnell-i -benadryl prn -observation -continuos pulse oximetry #CHF -Continue lasix 60 mg po daily #HIV, cd4 in the 600s per patient -Home medications need to be reconciled #Alcohol Detox -Librium protocol #HTN -avoid lisinopril, home medications need to be reconciled #FEN/GI -No IVF -wnl -Sodium controlled diet #PPx -early ambulation Home medications need to be reconciled Visit type - Emergency Visit Emergency Visit: Yes ED Registration Date: 11/11/17 Care time: The patient presented to the Emergency Department on the above date and was hospitalized for further evaluation of their emergent condition. - New Patient This patient is new to me today: Yes Date on this admission: 11/11/17 - Critical Care Critical Care patient: No Hospitalist Screening - Colonoscopy Questionnaire Colonoscopy Questionnaire: Colonoscopy Questionnaire - Patient: 50 - 75 years old and never had a screening colonoscopy: Unknown History of colon or rectal polyps, or CA: Unknown History of IBD, Crohn's disease or UC: Unknown History of abdominal radiation therapy as a child: Unknown - Relative: 1 with colon or rectal CA, or polyps at age 60 or younger: Unknown Colon or rectal CA diagnosed at age 45 or younger: Unknown Multiple relatives with colon or rectal CA: Unknown - Outcome: Screening Result: Negative Screen
[2017-11-11] MEDS ORDERED: chlordiazePOXIDE HCL 25 MG CAPSULE PO PRN (03:26)
--- NOTE | 2017-11-11 04:26 | PN ---
Teaching Attending Note Name of Resident: Grzegorz Vela ATTENDING PHYSICIAN STATEMENT I saw and evaluated the patient. I reviewed the resident's note and discussed the case with the resident. I agree with the resident's findings and plan as documented. SUBJECTIVE: 47 y/o F presented to ED from [facility] with left sided facial swelling and lip swelling. Patient took donnell inhibitor, otherwise no new medications or foods reported. Denies SOB, chest pain or palpitations. PMH: CHF, HTN, HIV, polysubstance abuse. OBJECTIVE: GEN: A&Ox3 in NAD HEENT: left lip swollen Lungs: no stridor CVS: RRR, S1, S2 Abd: obese, soft, bs+ Ext: nl ROM, 2+ pulses, 1+ edema. ASSESSMENT AND PLAN: Admit for observation for angioedema - possibly secondary to medication hold further donnell inhibitors Supportive care Benadryl q6h prn Substance abuse- consult rehab and continue treatments as recommended. CHF- lasix 60mg daily monitor I&Os and continue home medications except donnell inhibitor. HIV-Contiue home medications.
[2017-11-11] MEDS: chlordiazePOXIDE HCL 25 MG CAPSULE PO SCH ×2 (05:47→11:58)
[2017-11-11 06:32] VITALS: BMI 44.4
[2017-11-11] MEDS ORDERED: FUROSEMIDE 20 MG TABLET (FP) PO SCH ×2 (06:45→10:00)
[2017-11-11 07:41] LABS: BASO % 0.1 % (0-2.0); HEMATOCRIT 32.8 % (32.4-45.2); HEMOGLOBIN 10.7 GM/dL (10.7-15.3); LYMPH % 10.8 % (8-40); MCH 30.3 pg (25.7-33.7); MCHC 32.7 g/dl (32.0-36.0); MEAN CELL VOLUME 92.4 fl (80-96); MEAN PLT VOLUME 9.2 fl (7.5-11.1); MONO % 0.8 % (3.8-10.2); NEUT % 88.3 % (42.8-82.8); PLATELET COUNT 205 K/MM3 (134-434); RBC 3.55 M/mm3 (3.60-5.2); RDW 15.2 % (11.6-15.6); WHITE BLOOD COUNT 9.3 K/mm3 (4.0-10.0)
[2017-11-11 07:59] LABS: ANION GAP 4 (8-16); BLOOD UREA NITROGEN 17 mg/dL (7-18); CALCIUM 8.5 mg/dL (8.5-10.1); CHLORIDE 108 mmol/L (98-107); CO2 27 mmol/L (21-32); CREATININE 1.1 mg/dL (0.55-1.02); GLUCOSE,RANDOM 246 mg/dL (74-106); POTASSIUM 3.6 mmol/L (3.5-5.1); SODIUM 139 mmol/L (136-145)
--- NOTE | 2017-11-11 13:26 | DS ---
Physical Exam: SUBJECTIVE: Patient seen and examined Patient is eating and drinking without any difficulty. No swelling is noted. Patient wants to go back to detox. OBJECTIVE: Vital Signs Temperature 98.6 F 11/11/17 04:30 Pulse Rate 78 11/11/17 04:30 Respiratory Rate 18 11/11/17 08:00 Blood Pressure 124/63 11/11/17 04:30 O2 Sat by Pulse Oximetry (%) 97 11/11/17 08:00 PHYSICAL EXAM GENERAL: The patient is awake, alert, and fully oriented, in no acute distress. HEAD: Normal with no signs of trauma. EYES: PERRL, extraocular movements intact, sclera anicteric, conjunctiva clear. ENT: Ears normal, oropharynx clear without exudates, moist mucous membranes. No swelling of the mouth or throat , no Lip swelling of the Lips NECK: Trachea midline, full range of motion, supple. LUNGS: Breath sounds equal, clear to auscultation bilaterally, no wheezes, no crackles, no accessory muscle use. HEART: Regular rate and rhythm, S1, S2 without murmur, rub or gallop. ABDOMEN: Soft, NT, NR, normoactive bowel sounds, no guarding, no rebound, no hepatosplenomegaly, no masses. EXTREMITIES: 2+ pulses, warm, well-perfused, no edema. NEUROLOGICAL: Cranial nerves II through XII grossly intact. Normal speech, gait is stable PSYCH: Normal mood, normal affect. SKIN: Warm, dry, normal turgor, no rashes or lesions noted. LABS Laboratory Results - last 24 hr 11/11/17 11/11/17 11/11/17 01:15 01:15 07:15 WBC 8.8 9.3 RBC 3.50 L 3.55 L Hgb 10.8 10.7 Hct 32.2 L 32.8 MCV 92.0 92.4 MCH 30.8 30.3 MCHC 33.5 32.7 RDW 15.2 15.2 Plt Count 191 205 MPV 9.2 9.2 Neutrophils % 79.0 88.3 H Lymphocytes % 16.6 10.8 D Monocytes % 3.8 0.8 L Eosinophils % 0.1 0.0 D Basophils % 0.5 0.1 Sodium 141 Potassium 4.0 Chloride 108 H Carbon Dioxide 29 Anion Gap 4 L BUN 17 Creatinine 1.1 H Creat Clearance w eGFR 53.01 Random Glucose 122 H Calcium 8.9 Total Bilirubin < 0.1 L AST 16 ALT 15 Alkaline Phosphatase 141 H Total Protein 7.4 Albumin 3.3 L 11/11/17 07:15 WBC RBC Hgb Hct MCV MCH MCHC RDW Plt Count MPV Neutrophils % Lymphocytes % Monocytes % Eosinophils % Basophils % Sodium 139 Potassium 3.6 Chloride 108 H Carbon Dioxide 27 Anion Gap 4 L BUN 17 Creatinine 1.1 H Creat Clearance w eGFR Random Glucose 246 H Calcium 8.5 Total Bilirubin AST ALT Alkaline Phosphatase Total Protein Albumin Current Medications Generic Name Dose Route Start Last Admin Trade Name Freq PRN Reason Stop Dose Admin Chlordiazepoxide HCl 50 mg 11/11/17 05:00 11/11/17 11:58 Librium - PO 11/11/17 23:01 50 mg [id number] ALFRED Administration Chlordiazepoxide HCl 25 mg 11/12/17 05:00 Librium - PO 11/12/17 23:01 [id number] ALFRED Chlordiazepoxide HCl 15 mg 11/13/17 05:00 Librium - PO 11/13/17 23:01 [id number] ALFRED Chlordiazepoxide HCl 25 mg 11/11/17 03:26 Librium - PO 11/14/17 03:25 Q4H PRN WITHDRAWAL(CONT SUBST) Diphenhydramine HCl 25 mg 11/11/17 03:18 11/11/17 09:40 Benadryl - PO 25 mg Q6H PRN Administration Swelling Furosemide 60 mg 11/11/17 06:45 11/11/17 06:39 Lasix - PO 60 mg DAILY@0600 ALFRED Administration Home Medications Medication Instructions Recorded Albuterol Sulfate Inhaler - 2 inh IH Q4H PRN 03/20/13 [Ventolin Hfa *Inhaler*] Darunavir Ethanolate [Prezista] 400 mg PO BID 03/20/13 Etravirine [Intelence] 200 mg PO BID 03/20/13 Lamivudine [Epivir] 300 mg PO DAILY 03/20/13 Lisinopril [Prinivil] 10 mg PO DAILY 03/20/13 Raltegravir [Isentress -] 400 mg PO BID 03/20/13 Ritonavir [Norvir] 100 mg PO BID 03/20/13 Tenofovir Disoproxil Fumarate 300 mg PO DAILY 03/20/13 [Viread] HOSPITAL COURSE: Date of Admission:11/11/17 Date of Discharge: 11/11/17 Patient is 47 y/o F with PMHx CHF, HTN, HIV, polysubstance abuse, presented to ED from [facility] with left sided facial swelling and lip swelling . Patient took jovanna inhibitor and afterward developed angioedema, no anaphylaxis though. Patient is eating drinking without any complications. No headache,no nausea or vomiting. Informed the patient not to take any Ach-I from now on. #Angioedema, most likely due to lisinopril, avoid JOVANNA-I added to the allergy list today 11/11/2017, benadryl prn Follow with Nurseryperson for further allergy testing. Needs to carry Epipen on her. Benadryl oral 50mg po as needed. # HTN added Norvasc 5mg po daily. AVOID JOVANNA-Inhibitor for Life. No anaphylaxis #HIV, cd4 in the 600s per patient continue home meds #Alcohol Detox on Librium protocol continue in rehab. patient needs to be discharged back to Detox. 45 minutes Minutes to complete discharge: 45 Discharge Summary Reason For Visit: ANGIOEDEMA Current Active Problems Angioedema (Acute) Condition: Stable - Instructions - Home Medications Comprehensive Discharge Medication List: Ambulatory Orders Albuterol Sulfate Inhaler - [Ventolin Hfa *Inhaler*] 2 inh IH Q4H PRN 03/20/13 Darunavir Ethanolate [Prezista] 400 mg PO BID 03/20/13 Etravirine [Intelence] 200 mg PO BID 03/20/13 Lamivudine [Epivir] 300 mg PO DAILY 03/20/13 Lisinopril [Prinivil] 10 mg PO DAILY 03/20/13 Raltegravir [Isentress -] 400 mg PO BID 03/20/13 Ritonavir [Norvir] 100 mg PO BID 03/20/13 Tenofovir Disoproxil Fumarate [Viread] 300 mg PO DAILY 03/20/13 This patient is new to me today: Yes Date on this admission: 11/11/17 Emergency Visit: Yes ED Registration Date: 11/11/17 Care time: The patient presented to the Emergency Department on the above date and was hospitalized for further evaluation of their emergent condition. Critical Care patient: No - Discharge Referral [facility] Yes Physician Referral: Bhavesh Pablo MD ([facility])
[2017-11-11] MEDS ORDERED: FUROSEMIDE 20 MG TABLET (FP) PO ONE (14:14)
[2017-11-11 15:29] VITALS: BP 118/56; PULSE 89; TEMP 98.1
[2017-11-12] MEDS ORDERED: chlordiazePOXIDE HCL 25 MG CAPSULE PO SCH (05:00)
[2017-11-12] MEDS ORDERED: amLODIPine BESYLATE 5 MG TABLET (FP) PO SCH (10:00)
[2017-11-13] MEDS ORDERED: chlordiazePOXIDE 5 MG CAPSULE PO SCH (05:00)
--- NOTE | 2017-11-13 11:22 | CONSULT ---
Consult Detox [facility] Reason for Current Admission/Consult: substance use Referred by:: Karen pagan - History History of Present Illness: Patient discharged prior to completion of consultation - Alcohol/Substance Use Hx Alcohol Use: Yes - Past Medical History ...LMP: 10/04/17
--- NOTE | 2017-11-13 12:51 | EKG ---
Test Reason : Blood Pressure : / mmHG Vent. Rate : 075 BPM Atrial Rate : 075 BPM P-R Int : 174 ms QRS Dur : 104 ms QT Int : 440 ms P-R-T Axes : 021 074 064 degrees QTc Int : 491 ms NORMAL SINUS RHYTHM PROLONGED QT ABNORMAL ECG WHEN COMPARED WITH ECG OF 08-NOV-2017 21:43, NO SIGNIFICANT CHANGE WAS FOUND Confirmed by SELVIN HERNANDES MD ([id number]) on 11/13/2017 12:51:38 PM Referred By: Confirmed By:SELVIN HERNANDES MD
== END 2017-11-11 16:00 ==
LOC: JER 23:36 → JERBED 11-11 02:39 → UNDOADMOB 11-11 02:42 → JERBED 11-11 02:42 → J4W 11-11 04:30
PROVIDERS: ADMIT Internal Medicine; ATTEND Internal Medicine
PROC: 3E0333Z Introduction of Anti-inflammatory into Peripheral Vein, Percutaneous Approach (ICD-10-PCS; principal; 2017-11-11)
PROC: 3E033GC Introduction of Other Therapeutic Substance into Peripheral Vein, Percutaneous Approach (ICD-10-PCS; 2017-11-11)
PROC: 3E0337Z Introduction of Electrolytic and Water Balance Substance into Peripheral Vein, Percutaneous Approach (ICD-10-PCS; 2017-11-11)
DX: T78.3XXA Angioneurotic edema, initial encounter (principal); I10 Essential (primary) hypertension; I50.9 Heart failure, unspecified; Z21 Asymptomatic human immunodeficiency virus [HIV] infection status; J45.909 Unspecified asthma, uncomplicated; D64.9 Anemia, unspecified; F10.10 Alcohol abuse, uncomplicated; Z96.643 Presence of artificial hip joint, bilateral; Z88.2 Allergy status to sulfonamides
CPT/HCPCS: 36415; 80048; 80053; 85025; 93005; 93010; 99284-25; 99285-25; G0378

== ENCOUNTER 2017-11-11 15:40 | Inpatient (IN) | payer OTHER ==
[2017-11-11 17:26] VITALS: BMI 44.4
--- NOTE | 2017-11-11 17:57 | PN ---
[facility] Progress Note Note: this 47 years old female with alcohol dependence,admitted on 11/08/17 on librium regimen transferrd to [facility] on 11/10/17 with angioneurotic edema possible allergic to melatoin allergis to sulfa and lisinopril medically clear to return for continue detox and rehab had history of chf,edema of legs,hiv,htn medically clear to continue detox
[2017-11-11] MEDS ORDERED: MAG HYDROX/AL HYDROX/SIMETH 30 ML UNIT-DOSE CUP PO PRN (17:59)
[2017-11-11] MEDS ORDERED: P-EPHED 60MG/TRIPROLIDI 2.5MG TABLET PO PRN (17:59)
[2017-11-11] MEDS ORDERED: LOPERAMIDE HCL 2 MG CAPSULE PO PRN (17:59)
[2017-11-11] MEDS ORDERED: ACETAMINOPHEN 325 MG TABLET (FP) PO PRN (17:59)
[2017-11-11] MEDS ORDERED: guaiFENesin/D-METHORPHAN HB 10 ML UNIT-DOSE CUPS PO PRN (17:59)
[2017-11-11] MEDS ORDERED: MENTHOL/PHENOL 1 EACH UD MM PRN (17:59)
[2017-11-11] MEDS ORDERED: IBUPROFEN 400 MG TABLET (FP) PO PRN (17:59)
[2017-11-11] MEDS ORDERED: MAGNESIUM HYDROX 2400MG/30ML ORAL SUSPENSION 30 ML CUP PO PRN (17:59)
[2017-11-11] MEDS ORDERED: MAGNESIUM CITRATE 300 ML BOTTLE PO PRN (17:59)
[2017-11-11] MEDS ORDERED: ALBUTEROL SO4 18 GM HFA INHALER IH PRN (18:05)
[2017-11-11] MEDS ORDERED: THIAMINE HCL 100 MG TABLET (FP) PO SCH (22:00)
[2017-11-11] MEDS ORDERED: DARUNAVIR ETHANOLATE PO SCH (22:00)
[2017-11-11] MEDS ORDERED: PATIENT'S OWN MEDICATION (NON-FORMULARY) (Etravirine [Intelence -] 200 MG) PO SCH (22:00)
[2017-11-11] MEDS: chlordiazePOXIDE 5 MG CAPSULE PO SCH (22:24)
[2017-11-11] MEDS: PATIENT'S OWN MEDICATION (NON-FORMULARY) (Ritonavir [Norvir] 100 MG) PO SCH (22:55)
[2017-11-11] MEDS: PATIENT'S OWN MEDICATION (NON-FORMULARY) (Raltegravir [Isentress] 400 MG) PO SCH (22:57)
[2017-11-11] MEDS: DARUNAVIR ETHANOLATE PO SCH (22:57)
[2017-11-11] MEDS: PATIENT'S OWN MEDICATION (NON-FORMULARY) (Etravirine [Intelence -] 200 MG) PO SCH (22:59)
[2017-11-12] MEDS: diphenhydrAMINE HCL 25 MG CAPSULE (FP) PO PRN ×2 (00:09→06:36)
[2017-11-12] MEDS: chlordiazePOXIDE 5 MG CAPSULE PO SCH (05:18)
[2017-11-12] MEDS ORDERED: FUROSEMIDE 20 MG TABLET (FP) PO SCH (06:00)
[2017-11-12] MEDS: PATIENT'S OWN MEDICATION (NON-FORMULARY) (Etravirine [Intelence -] 200 MG) PO SCH (09:15)
[2017-11-12] MEDS: PATIENT'S OWN MEDICATION (NON-FORMULARY) (Ritonavir [Norvir] 100 MG) PO SCH (09:16)
[2017-11-12] MEDS: DARUNAVIR ETHANOLATE PO SCH (09:16)
[2017-11-12] MEDS ORDERED: ASPIRIN 81 MG CHEWABLE TABLETS PO SCH (10:00)
[2017-11-12] MEDS ORDERED: PATIENT'S OWN MEDICATION (NON-FORMULARY) (Tenofovir Disoproxil Fumarate [Viread -] 300 MG) PO SCH (10:00)
[2017-11-12] MEDS ORDERED: amLODIPine BESYLATE 5 MG TABLET (FP) PO SCH (10:00)
[2017-11-12] MEDS ORDERED: LAMIVUDINE 300 MG PO SCH (10:00)
[2017-11-12] MEDS ORDERED: PRENATAL VITAMINS W/ FOLIC ACID TABLET (FP) PO SCH (10:00)
--- NOTE | 2017-11-12 10:23 | DS ---
[facility] Detox Discharge Summary Admission Date: 11/11/17 Discharge Date: 11/12/17 - History Present History: Alcohol Dependence Additional Comments: 47 years old female admitted on 11/08/17 for alcohol detox swelling face and lips transferred to higher level medical services continue alcohol detox with consultation returned 11/11/17 continue alcohol detox, patient tolerated well patient completed detox regimen today and transferred to [facility] in patient rehab patient is alert oriented x 3 no acute distress - Physical Exam Results Vital Signs: Vital Signs Temperature 97.5 F L 11/12/17 06:37 Pulse Rate 84 11/12/17 06:37 Respiratory Rate 18 11/12/17 06:37 Blood Pressure 121/71 11/12/17 06:37 O2 Sat by Pulse Oximetry (%) Pertinent Admission Physical Exam Findings: withdrawal sx Vital Signs Temperature 97.5 F L 11/12/17 06:37 Pulse Rate 84 11/12/17 06:37 Respiratory Rate 18 11/12/17 06:37 Blood Pressure 121/71 11/12/17 06:37 O2 Sat by Pulse Oximetry (%) Vital Signs Temperature 97.5 F L 11/12/17 06:37 Pulse Rate 84 11/12/17 06:37 Respiratory Rate 18 11/12/17 06:37 Blood Pressure 121/71 11/12/17 06:37 O2 Sat by Pulse Oximetry (%) unable to paste lab results - Treatment Hospital Course: Detox Protocol Followed, Detoxed Safely, Responded well, Discharged Condition Good, Rehab Referral Accepted Patient has Accepted a Rehab Referral to: [facility] - Medication Discharge Medications: Ambulatory Orders Albuterol Sulfate Inhaler - [Ventolin HFA Inhaler -] 2 inh IH Q4H PRN 03/20/13 Darunavir Ethanolate [Prezista -] 400 mg PO BID 03/20/13 Etravirine [Intelence -] 200 mg PO BID 03/20/13 Lamivudine [Epivir] 300 mg PO DAILY 03/20/13 Raltegravir [Isentress] 400 mg PO BID 03/20/13 Ritonavir [Norvir] 100 mg PO BID 03/20/13 Tenofovir Disoproxil Fumarate [Viread -] 300 mg PO DAILY 03/20/13 Amlodipine Besylate [Norvasc -] 5 mg PO DAILY tablet 11/11/17 Diphenhydramine HCl [Benadryl Capsule -] 25 mg PO Q6H PRN capsule 11/11/17 Furosemide [Lasix -] 60 mg PO DAILY@0600 tablet 11/11/17 Pravastatin Sodium [Pravachol -] 40 tab PO HS 11/12/17 - Diagnosis (1) Positive PPD Current Visit: No Status: Resolved (2) Alcohol dependence with uncomplicated withdrawal Current Visit: Yes Status: Acute (3) Asthma Current Visit: Yes Status: Chronic (4) Essential hypertension Current Visit: Yes Status: Chronic (5) Human immunodeficiency virus infection Current Visit: Yes Status: Chronic (6) Nicotine dependence Current Visit: Yes Status: Acute Qualifiers: Nicotine product type: cigarettes Substance use status: in withdrawal Qualified Code(s): F17.213 - Nicotine dependence, cigarettes, with withdrawal - AMA Did Patient Leave Against Medical Advice: No
[2017-11-12] MEDS: PATIENT'S OWN MEDICATION (NON-FORMULARY) (Raltegravir [Isentress] 400 MG) PO SCH (10:53)
[2017-11-12] MEDS: chlordiazePOXIDE HCL 10 MG CAPSULE PO SCH ×2 (10:53→11:18)
[2017-11-12 11:25] LABS: URINE APPEARANCE SLCLOUDY; URINE BILIRUBIN NEGATIVE (<2.0 mg/dL); URINE BLOOD NEGATIVE (NEGATIVE); URINE COLOR LTYELLOW; URINE GLUCOSE (UA) 1+ (NEGATIVE); URINE KETONE NEGATIVE (NEGATIVE); URINE LEUK ESTERASE NEGATIVE (NEGATIVE); URINE NITRITE NEGATIVE (NEGATIVE); URINE PROTEIN NEGATIVE (NEGATIVE); URINE UROBILINOGEN NEGATIVE mg/dL (0.2-1.0)
[2017-11-12 12:34] VITALS: BP 133/75; PULSE 96; TEMP 98
--- NOTE | 2017-11-12 13:34 | HP ---
[facility] Rehab Assess/Revision - Admission History Admitted to Rehab from: [facility] [place] Date of Admission to Rehab: 11/12/17 - Vital signs Vital Signs: Vital Signs Period Temp Pulse Resp BP Sys/Matias Pulse Ox Last 24 Hr 97.5 F-99.6 F 84-99 18-22 121-151/69-93 - Findings Detox History & Physical reviewed: Yes Concur with findings: Yes Inpatient Rehab Admission - Initial Determination Are CD services needed?: Yes Free of communicable disease: Yes Not in need of hospitalization: Yes - Rehab Admission Criteria Previous failed treatment: Yes Poor recovery environment: Yes Comorbidities: Yes Lacks judgement: No Patient is meeting Inpatient Rehab admission criteria:: Yes
[2017-11-12] MEDS ORDERED: ATORVASTATIN CA 10 MG TABLET (FP) PO SCH (22:00)
[2017-11-12] MEDS ORDERED: RITONAVIR 100 MG TABLET PO SCH (22:00)
[2017-11-12] MEDS ORDERED: RALTEGRAVIR POTASSIUM 400 MG TAB PO SCH (22:00)
[2017-11-12] MEDS ORDERED: DARUNAVIR ETHANOLATE 600 MG TAB PO SCH (22:00)
[2017-11-12] MEDS ORDERED: chlordiazePOXIDE HCL 10 MG CAPSULE PO SCH ×2 (23:00)
== END 2017-11-12 12:21 | disposition other institution (70) | DRG 775 ==
LOC: YASAS 15:40 → Y6N 17:38 → Y3E 11-12 12:31 → Y6N 11-12 12:31
PROVIDERS: ADMIT Internal Medicine; ATTEND Internal Medicine
PROC: HZ2ZZZZ Detoxification Services for Substance Abuse Treatment (ICD-10-PCS; principal; 2017-11-11)
DX: F10.230 Alcohol dependence with withdrawal, uncomplicated (principal); F17.213 Nicotine dependence, cigarettes, with withdrawal; I10 Essential (primary) hypertension; R76.11 Nonspecific reaction to tuberculin skin test without active tuberculosis; J45.909 Unspecified asthma, uncomplicated; Z86.79 Personal history of other diseases of the circulatory system; Z88.8 Allergy status to other drugs, medicaments and biological substances
CPT/HCPCS: 81003

== ENCOUNTER 2017-11-12 14:30 | Inpatient (IN) | payer OTHER ==
[2017-11-12] MEDS ORDERED: MAGNESIUM HYDROX 2400MG/30ML ORAL SUSPENSION 30 ML CUP PO PRN (15:05)
[2017-11-12] MEDS ORDERED: ACETAMINOPHEN 325 MG TABLET (FP) PO PRN (15:05)
[2017-11-12] MEDS ORDERED: MAGNESIUM CITRATE 300 ML BOTTLE PO PRN (15:05)
[2017-11-12] MEDS ORDERED: P-EPHED 60MG/TRIPROLIDI 2.5MG TABLET PO PRN (15:05)
[2017-11-12] MEDS ORDERED: MAG HYDROX/AL HYDROX/SIMETH 30 ML UNIT-DOSE CUP PO PRN (15:05)
[2017-11-12] MEDS ORDERED: MENTHOL/PHENOL 1 EACH UD MM PRN (15:05)
[2017-11-12] MEDS ORDERED: LOPERAMIDE HCL 2 MG CAPSULE PO PRN (15:05)
[2017-11-12] MEDS ORDERED: hydrOXYzine PAMOATE 50 MG CAPSULE (FP) PO PRN (15:05)
[2017-11-12] MEDS ORDERED: IBUPROFEN 400 MG TABLET (FP) PO PRN (15:05)
[2017-11-12] MEDS ORDERED: guaiFENesin/D-METHORPHAN HB 10 ML UNIT-DOSE CUPS PO PRN (15:05)
--- NOTE | 2017-11-12 15:09 | HP ---
[facility] Rehab Assess/Revision - Admission History Admitted to Rehab from: [facility] [place] Date of Admission to Rehab: 11/12/17 - Findings Detox History & Physical reviewed: Yes Concur with findings: Yes Comments/Additional Findings: FOR REHAB PROTOCOL Inpatient Rehab Admission - Initial Determination Are CD services needed?: Yes Free of communicable disease: Yes Not in need of hospitalization: Yes - Rehab Admission Criteria Previous failed treatment: Yes Poor recovery environment: Yes Comorbidities: Yes Lacks judgement: No Patient is meeting Inpatient Rehab admission criteria:: Yes
[2017-11-12] MEDS ORDERED: ALBUTEROL SO4 18 GM HFA INHALER IH PRN (15:10)
[2017-11-12] MEDS ORDERED: DARUNAVIR ETHANOLATE PO SCH ×2 (18:45→22:00)
[2017-11-12] MEDS ORDERED: PATIENT'S OWN MEDICATION (NON-FORMULARY) (Ritonavir [Norvir] 100 MG) PO SCH ×2 (18:45→22:00)
[2017-11-12] MEDS ORDERED: PATIENT'S OWN MEDICATION (NON-FORMULARY) (Etravirine [Intelence -] 200 MG) PO SCH ×2 (18:45→22:00)
[2017-11-12] MEDS: PATIENT'S OWN MEDICATION (NON-FORMULARY) (Raltegravir [Isentress] 400 MG) PO SCH (21:29)
[2017-11-12] MEDS: PATIENT'S OWN MEDICATION (NON-FORMULARY) (Ritonavir [Norvir] 100 MG) PO SCH (21:29)
[2017-11-12] MEDS: PATIENT'S OWN MEDICATION (NON-FORMULARY) (Etravirine [Intelence -] 200 MG) PO SCH (21:30)
[2017-11-12] MEDS: diphenhydrAMINE HCL 25 MG CAPSULE (FP) PO PRN (21:35)
[2017-11-12] MEDS: DARUNAVIR ETHANOLATE PO SCH (21:40)
[2017-11-12] MEDS ORDERED: PRAVASTATIN SODIUM PO SCH (22:00)
[2017-11-12] MEDS ORDERED: THIAMINE HCL 100 MG TABLET (FP) PO SCH (22:00)
--- NOTE | 2017-11-13 01:01 | PN ---
[facility] Progress Note Note: PT.REQUESTED TO BE ASSESSED FOR WORSENING EDEMA TO HER B/L LE. SHE WAS FOUND IN THE KITCHEN DRINKING A CUP OF COFFEE. PT. RECEIVES 60MG OF LASIX IN THE MORNING AND WAS REQUESTING AN ADDITIONAL 40MG STAT. NO EDEMA WAS NOTED ON HER LOWER EXTREMITIES AND NO SOB NOTED. SHE WAS INFORMED THAT SHE WOULD NOT RECEIVE 40MG IT COULD RESULT IN AN ELECTROLYTE IMBALANCE OR PUT THE PT AT RISK FOR FALLS. PT. BECAME IRATE AND THREATENED TO LEAVE AMA. SHE WAS INFORMED SHE WOULD RECEIVE HER REGULAR DOSE OF 60MG AND WOULD BE RE-EVALUATED IN THE MORNING.
[2017-11-13] MEDS ORDERED: FUROSEMIDE 20 MG TABLET (FP) PO SCH (06:00)
[2017-11-13] MEDS: diphenhydrAMINE HCL 25 MG CAPSULE (FP) PO PRN (06:32)
[2017-11-13 06:53] VITALS: TEMP 98.4
[2017-11-13] MEDS ORDERED: PT OWN MED DRAWER 7, Y5N ONE ×2 (08:28→09:44)
[2017-11-13 09:23] VITALS: BP 128/76; PULSE 80
--- NOTE | 2017-11-13 09:38 | PN ---
[facility] Progress Note Note: Called by nursing staff because patient who was newly admitted from detox yesterday wants to leave against medical advice. Patient told proposal writer she wants to leave because she was not getting her medications the way she supposed to get it. She was told by proposal writer that the issue could be resolve. She responded that it was too late, she expected things to be done timely. Patient was determined to leave despite encouragement to stay and complete theprogram. She is stable to leave against medical advice
[2017-11-13] MEDS: PATIENT'S OWN MEDICATION (NON-FORMULARY) (Ritonavir [Norvir] 100 MG) PO SCH (09:52)
[2017-11-13] MEDS: PATIENT'S OWN MEDICATION (NON-FORMULARY) (Raltegravir [Isentress] 400 MG) PO SCH (09:53)
[2017-11-13] MEDS: DARUNAVIR ETHANOLATE PO SCH (09:55)
[2017-11-13] MEDS: PATIENT'S OWN MEDICATION (NON-FORMULARY) (Etravirine [Intelence -] 200 MG) PO SCH (09:57)
[2017-11-13] MEDS ORDERED: amLODIPine BESYLATE 5 MG TABLET (FP) PO SCH (10:00)
[2017-11-13] MEDS ORDERED: TENOFOVIR DISOPROXIL FUMARATE 300 MG TABLET PO SCH (10:00)
[2017-11-13] MEDS ORDERED: ASPIRIN COATED 81 MG TABLET.EC PO SCH (10:00)
[2017-11-13] MEDS ORDERED: PRENATAL VITAMINS W/ FOLIC ACID TABLET (FP) PO SCH (10:00)
== END 2017-11-13 10:20 | disposition left against medical advice (07) | DRG 770 ==
LOC: YASAS 14:30 → Y3E 14:32
PROVIDERS: ADMIT Psychiatry & Neurology Psychiatry; ATTEND Psychiatry & Neurology Psychiatry
PROC: HZ42ZZZ Group Counseling for Substance Abuse Treatment, Cognitive-Behavioral (ICD-10-PCS; principal; 2017-11-12)
DX: F10.230 Alcohol dependence with withdrawal, uncomplicated (principal); F17.213 Nicotine dependence, cigarettes, with withdrawal; I10 Essential (primary) hypertension; J45.909 Unspecified asthma, uncomplicated; R76.11 Nonspecific reaction to tuberculin skin test without active tuberculosis; Z86.79 Personal history of other diseases of the circulatory system; Z88.8 Allergy status to other drugs, medicaments and biological substances